=== PATIENT | male | born 1955 | race Caucasian/White ===

== ENCOUNTER 2017-01-29 13:16 | Emergency (ER) | payer OTHER ==
[~2017-01-29] VITALS: Wt 85.0 kg
[2017-01-29 13:58] LABS: BASOPHIL # 0.1 10^3/ul (0.0-0.1); BASOPHILS % 0.7 % (0.0-2.0); EOSINOPHILS # 0.1 10^3/ul (0.0-0.5); EOSINOPHILS % 1.2 % (0.0-7.0); HEMATOCRIT 36.3 % (42.0-52.0); HEMOGLOBIN 12.2 g/dl (14.0-18.0); LYMPHOCYTES # 1.6 10^3/ul (0.8-2.9); LYMPHOCYTES % 21.4 % (15.0-51.0); MEAN CORPUSCULAR HGB CONC 33.6 g/dl (32.0-37.0); MEAN CORPUSCULAR VOLUME 92.1 fl (82.0-101.0); MEAN PLATELET VOLUME 8.9 fl (7.4-10.4); MONOCYTE # 0.7 10^3/ul (0.3-0.9); MONOCYTES % 9.6 % (0.0-11.0); PLATELET COUNT 266 10^3/UL (140-415); RED BLOOD COUNT 3.94 10^6/ul (4.70-6.10); RED CELL DISTRIBUTION WIDTH 13.4 % (11.5-14.5); WHITE BLOOD COUNT 7.4 10^3/ul (4.8-10.8)
[2017-01-29] MEDS ORDERED: QUET50TA22 PO (14:12)
[2017-01-29] MEDS ORDERED: PARO40TA48 PO (14:12)
[2017-01-29 14:13] LABS: INR 1.07; PARTIAL THROMBOPLASTIN TIME 26.4 Sec (25.0-35.0); PROTIME 13.9 Sec (12.2-14.2); PT RATIO 1.1
[2017-01-29] MEDS ORDERED: ENTA200T2 PO ×2 (14:13→14:15)
[2017-01-29 14:15] LABS: ALANINE AMINOTRANSFERASE 19 IU/L (13-69); ALBUMIN 3.9 g/dl (3.3-4.9); ALKALINE PHOSPHATASE 62 IU/L (42-121); ANION GAP 13 (8-16); ASPARTATE AMINO TRANSFERASE 14 IU/L (15-46); BILIRUBIN,INDIRECT 0.4 mg/dl (0-1.1); BILIRUBIN,TOTAL 0.4 mg/dl (0.2-1.3); BLOOD UREA NITROGEN 19 mg/dl (7-20); CALCIUM 8.7 mg/dl (8.4-10.2); CARBON DIOXIDE 24 mmol/L (21-31); CHLORIDE 109 mmol/L (97-110); CREATININE 0.67 mg/dl (0.61-1.24); GLUCOSE 113 mg/dl (70-220); POTASSIUM 3.6 mmol/L (3.5-5.1); SODIUM 142 mmol/L (135-144); TOTAL PROTEIN 6.9 g/dl (6.1-8.1)
[2017-01-29] MEDS ORDERED: UDSYM PO (14:15)
[2017-01-29 14:16] LABS: LACTIC ACID 1.8 mmol/L (0.5-2.0)
[2017-01-29] MEDS ORDERED: SOD CHLORIDE 0.9% 250 ML IV ONE (14:16)
[2017-01-29] MEDS ORDERED: BUSP10TA2 PO (14:16)
[2017-01-29] MEDS ORDERED: SIN50200 PO (14:17)
[2017-01-29 14:19] LABS: ACETAMINOPHEN < 10.0 ug/ml (10.0-30.0); ETHANOL < 10.0 mg/dl; SALICYLATE < 1.0 mg/dl (5.0-30.0)
[2017-01-29] MEDS ORDERED: CARB1TAB2 PO (14:19)
[2017-01-29] MEDS ORDERED: CARB1TAB42 PO (14:24)
[2017-01-29] MEDS ORDERED: CARB1TAB46 PO (14:24)
--- NOTE | 2017-01-29 15:11 | RADRPT ---
PROCEDURE: CT Brain without contrast. CLINICAL INDICATION: Altered mental status. TECHNIQUE: A CT of the brain was performed on multidetector high-resolution CT scanner utilizing a xial sections from the skull base through the vertex without contrast. The scan was reviewed in sof t tissue brain and high frequency resolution bone algorithm windows. Images were reviewed on a high -resolution PACS workstation. One or more the following does reduction techniques were utilized: Aut omated exposure control, adjustment of the mA/ or kV according to patient's size, or use of iterativ e reconstruction technique. The exam CTDI = 44.33 mGy and the DLP = 720.23 mGy-cm. COMPARISON: None available. FINDINGS: The ventricles and sulci are mildly prominent indicative of volume loss. There is no intracranial he morrhage, mass effect or midline shift. No abnormal intra-axial or extra-axial fluid collections ar e seen. The langley/white matter differentiation is preserved. There are mild scattered foci of hypoattenuation in the white matter, which are nonspecific in etiol ogy but likely reflect chronic small vessel ischemic changes. There are mild intracranial vascular calcifications consistent with atherosclerosis. The visualized paranasal sinuses are essentially rudy ar. IMPRESSION: 1. No acute intracranial hemorrhage, transcortical infarction or mass effect. 2. Mild intracranial atherosclerosis and chronic small vessel ischemic changes. 3. Mild generalized cerebral volume loss. RPTAT: HFN .Estela Mcgill MD, MD Date Time Electronically viewed and signed by .Estela Mcgill MD, MD on 01/29/2017 15:10 .N/
--- NOTE | 2017-01-29 15:30 | RADRPT ---
PROCEDURE: XR Chest. CLINICAL INDICATION: Altered mental status TECHNIQUE: AP view of the chest was obtained. COMPARISON: None. FINDINGS: The cardiomediastinal silhouette is within normal limits. There is minimal left lower lung atelect asis. No pleural effusion or pneumothorax is identified. Right shoulder degenerative changes are n oted. IMPRESSION: Minimal left lower lung atelectasis. RPTAT: GG .Emanuel Urrutia MD, MD Date Time Electronically viewed and signed by .Emanuel Urrutia MD, on 01/29/2017 15:30 .O/
[2017-01-29 15:32] LABS: BARBITURATES Negative (NEGATIVE); BENZODIAZEPINES Negative (NEGATIVE); CANNABINOIDS Negative (NEGATIVE); COCAINE Negative (NEGATIVE); OPIATES Negative (NEGATIVE)
[2017-01-29 15:59] LABS: ADD UMIC NO; UR ASCORBIC ACID NEGATIVE (NEGATIVE); UR BILIRUBIN (Dip) NEGATIVE (NEGATIVE); UR BLOOD (Dip) NEGATIVE (NEGATIVE); UR CLARITY CLEAR (CLEAR); UR COLOR AMBER (YELLOW); UR GLUCOSE (Dip) NEGATIVE (NEGATIVE); UR KETONES (Dip) TRACE mg/dL (NEGATIVE); UR LEUKOCYTE ESTERASE (Dip) NEGATIVE Leu/ul (NEGATIVE); UR NITRITE (Dip) NEGATIVE (NEGATIVE); UR SPECIFIC GRAVITY (Dip) 1.024 (1.003-1.030); UR TOTAL PROTEIN (Dip) NEGATIVE (NEGATIVE); UR UROBILINOGEN (Dip) 2+ mg/dL (NEGATIVE)
--- NOTE | 2017-01-29 16:47 | ERA ---
ER Documentation Chief Complaint Date/Time DATE: 01/29/17 TIME: 16:41 Chief Complaint SENT BY FACILITY FOR INCREASED LETHARGY AND LESS INTERACTIVE.NO PAIN/TRAUMA HPI History is significantly limited from this patient given his clinical and cognitive deficits. History obtained from EMS who states that this patient was brought in by his nursing facility for increased lethargy and being less interactive. The patient does have a previous history of Parkinson's dementia, and according to his roommate and nursing staff this patient has been less interactive. The patient's states he is not having any pain, and denies any weakness. ROS All systems reviewed and are negative except as per history of present illness. Medications Home Meds Reported Medications Carbidopa/Levodopa (Carbidopa-Levo ER 25-100 Tab) 1 Each Tablet.er, 0.5 EACH PO QHS, TAB 01/29/17 Carbidopa/Levodopa (Sinemet 25-100 mg Tablet) 1 Each Tablet, 2.5 EACH PO SIX TIMES DAILY, TAB EVERY 2 HOURS (7AM-7PM) 01/29/17 Carbidopa-Levodopa* (Sinemet CR*) 50-200 Mg Tabsr, 1 TAB PO QHS, TAB INCLUDE 05/31 A TAB OF 25/100MG OF CARB/LEVO 01/29/17 Buspirone Hcl* (Buspirone Hcl*) 10 Mg Tab, 10 MG PO TID, TAB 01/29/17 Amantadine Hcl* (Amantadine Hcl*) 50 Mg/5 Ml Syrup, 100 MG PO BID, #300 ML 01/29/17 Entacapone* (Entacapone*) 200 Mg Tablet, 100 MG PO SIX TIMES DAILY, TAB EVERY 2 HOURS (7AM-7PM) 01/29/17 Entacapone* (Entacapone*) 200 Mg Tablet, 200 MG PO QHS, TAB 01/29/17 Paroxetine Hcl* (Paxil*) 40 Mg Tablet, 40 MG PO DAILY, TAB 01/29/17 Quetiapine Fumarate* (Quetiapine Fumarate*) 50 Mg Tablet, 175 MG PO TID, TAB 01/29/17 Discontinued Reported Medications Carbidopa/Levodopa (CARBIDOPA-LEVO 25-100 MG ODT) 1 Each Tab.rapdis, 1 TAB PO QID, #120 TAB 01/29/17 Allergies Allergies: Coded Allergies: haloperidol (Verified Allergy, Intermediate, 9/2/17) Verified with [facility] lorazepam (Verified Allergy, Intermediate, 01/29/17) called [facility] Penicillins (Unverified Allergy, Unknown, 01/29/17) PMhx/Soc History of Surgery: No Anesthesia Reaction: No Hx Neurological Disorder: Yes (seizures, parkinson's) Hx Respiratory Disorders: No Hx Cardiac Disorders: No Hx Psychiatric Problems: Yes (psychosis and depression) Hx Miscellaneous Medical Probl: No Hx Alcohol Use: No Hx Substance Use: No Hx Tobacco Use: No Smoking Status: Unknown if ever smoked Physical Exam Vitals Vital Signs Date Time Temp Pulse Resp B/P Pulse Ox O2 Delivery O2 Flow Rate FiO2 01/29/17 15:05 98.6 51 18 123/82 98 Room Air 01/29/17 13:34 98.6 60 21 100/68 98 Physical Exam INITIAL VITAL SIGNS: Reviewed by me GENERAL: The patient is well developed and appropriate for usual state of health in no apparent distress HEENT: Pupils equal, round, and reactive to light. EOMI. There is no scleral icterus. NECK: C-spine is soft and supple, there is no meningismus. There is no cervical lymphadenopathy. LUNGS: Clear to auscultation bilaterally. There are no rales, wheezes or rhonchi. HEART: Regular rate and rhythm, no murmurs, clicks, rubs or gallops. ABDOMEN: Soft, non-tender, non-distended. There are bowel sounds in all four quadrants. No rebound or guarding. EXTREMITIES: There is no peripheral cyanosis or edema. No focal swelling or erythema. NEUROLOGICAL: Patient does have mildly garbled speech, the patient moves all four extremities with 5/5 strength. Cranial nerves II - XII are intact. Normal gait. Alert and oriented SKIN: There is no apparent rash or petechiae. HEME/LYMPHATIC: There is no evidence of excessive bruising or lymphedema. PSYCHIATRIC: The patient does not appear anxious or depressed. Result Diagram: 01/29/17 1350 01/29/17 1350 Results 24 hrs Laboratory Tests Test 01/29/17 13:50 01/29/17 15:05 White Blood Count 7.410^3/ul Red Blood Count 3.9410^6/ul Hemoglobin 12.2g/dl Hematocrit 36.3% Mean Corpuscular Volume 92.1fl Mean Corpuscular Hemoglobin 31.0pg Mean Corpuscular Hemoglobin Concent 33.6g/dl Red Cell Distribution Width 13.4% Platelet Count 59815^3/UL Mean Platelet Volume 8.9fl Neutrophils % 67.0% Lymphocytes % 21.4% Monocytes % 9.6% Eosinophils % 1.2% Basophils % 0.7% Nucleated Red Blood Cells % 0.0/100WBC Neutrophils # (Manual) 4.910^3/ul Lymphocytes # 1.610^3/ul Monocytes # 0.710^3/ul Eosinophils # 0.110^3/ul Basophils # 0.110^3/ul Nucleated Red Blood Cells # 0.010^3/ul Prothrombin Time 13.9Sec Prothrombin Time Ratio 1.1 INR International Normalized Ratio 1.07 Activated Partial Thromboplast Time 26.4Sec Sodium Level 142mmol/L Potassium Level 3.6mmol/L Chloride Level 109mmol/L Carbon Dioxide Level 24mmol/L Anion Gap 13 Blood Urea Nitrogen 19mg/dl Creatinine 0.67mg/dl Glucose Level 113mg/dl Lactic Acid Level 1.8mmol/L Calcium Level 8.7mg/dl Total Bilirubin 0.4mg/dl Direct Bilirubin 0.00mg/dl Indirect Bilirubin 0.4mg/dl Aspartate Amino Transf (AST/SGOT) 14IU/L Alanine Aminotransferase (ALT/SGPT) 19IU/L Alkaline Phosphatase 62IU/L Ammonia 14umol/l Troponin I < 0.012ng/ml Total Protein 6.9g/dl Albumin 3.9g/dl Globulin 3.00g/dl Albumin/Globulin Ratio 1.30 Salicylates Level < 1.0mg/dl Acetaminophen Level < 10.0ug/ml Ethyl Alcohol Level < 10.0mg/dl Urine Color CATHY Urine Clarity CLEAR Urine pH 6.0 Urine Specific [place] 1.024 Urine Ketones TRACEmg/dL Urine Nitrite NEGATIVEmg/dL Urine Bilirubin NEGATIVEmg/dL Urine Urobilinogen 2+mg/dL Urine Leukocyte Esterase NEGATIVELeu/ul Urine Hemoglobin NEGATIVEmg/dL Urine Glucose NEGATIVEmg/dL Urine Total Protein NEGATIVEmg/dl Urine Opiates Screen Negative Urine Barbiturates Negative Urine Amphetamines Screen Negative Urine Benzodiazepines Screen Negative Urine Cocaine Screen Negative Urine Cannabinoids Negative Current Medications Medications (Trade) Dose Ordered Sig/Edgar Route PRN Reason Start Time Stop Time Status Last Admin Dose Admin Sodium Chloride (NS) 250 ml @ 0 mls/hr Q0M ONCE IV 01/29/17 14:16 01/29/17 14:18 DC 01/29/17 14:30 Procedures/MDM ct brain: 1. No acute intracranial hemorrhage, transcortical infarction or mass effect. 2. Mild intracranial atherosclerosis and chronic small vessel ischemic changes. 3. Mild generalized cerebral volume loss. Chest X-ray 1V Interpreted by me: Soft Tissue: No acute abnormalities Bones: No acute abnormalities Mediastinum/Cardiac Silhouette/Lungs: Minimal left lobe atelectasis This 61-year-old male presents to the emergency room for evaluation of altered mental status and decreased cognitive functioning as per his baseline. This patient had no focal neurological deficits on my examination. He did have lab work drawn and had CT of the brain done which was within normal limits. His chest x-ray is clear. The patient is able to answer questions appropriately however he does have garbled speech. I did contact the custodial and they could not tell me whether this patient was at his baseline mental status or not. I then contacted this patient's daughter who states that sometimes when he needs a medication adjustment she presents with garbled speech. Given his symptoms the patient will be transferred to [place] at this time for a reevaluation and possible medication adjustment. The patient is likely suffering from cognitive decline secondary to his Parkinson's versus metabolic encephalopathy. I have spoken to Dr. hernandez at [facility] who accepts this patient. Case #[id number] Departure Diagnosis: Primary Impression: Altered mental status Additional Impressions: Metabolic encephalopathy Parkinson's disease dementia Condition: Stable EUGENIO PHILLIPS DO Jan 29, 2017 16:47
[2017-01-29 18:12] VITALS: BP 138/83; PULSE 55; RESP 18; TEMP 98.1
== END 2017-01-29 18:24 | disposition short-term general hospital (02) ==
LOC: E/R 13:16
DX: R41.82 Altered mental status, unspecified (principal); G93.41 Metabolic encephalopathy; G31.83 Neurocognitive disorder with Lewy bodies
CPT/HCPCS: 36415; 36430; 70450; 71010; 80053; 80306; 80307; 81003; 82140; 83605; 84484; 85025; 85610; 85730; 93005; 99285; J7040